=== PATIENT | male | born 1980 | race Caucasian/White ===

== ENCOUNTER 2018-09-29 16:56 | Observation (INO) ==
[2018-09-29] MEDS ORDERED: IOPAMIDOL 100 ML BOTTLE IV ONE (16:57)
[2018-09-29] MEDS ORDERED: 0.9 % SODIUM CHLORIDE 1,000 ML IV ONE ×2 (17:16→18:21)
[2018-09-29 17:53] LABS: Basophils # (Auto) 0 K/mcL (0.0-0.3); Basophils % (Auto) 0.1 % (0.0-2.0); Eosinophils # (Auto) 0 K/mcL (0.0-0.7); Eosinophils % (Auto) 0.1 % (0.0-7.0); Lymphocytes # (Auto) 1.2 K/mcL (1.5-4.8); Lymphocytes % (Auto) 7.7 % (15.5-49.0); Mean Cell Volume 84.9 fL (80.0-100.0); Mean Corpuscular HGB Conc 33.5 g/dL (31.0-36.0); Monocytes # (Auto) 0.7 K/mcL (0.1-0.9); Monocytes % (Auto) 4.1 % (1.0-12.0); Platelet Count 188 K/mcL (140-440); RBC 5.44 M/mcL (4.50-5.90); Red Cell Distribution Width 13.3 % (11.5-14.5)
--- NOTE | 2018-09-29 17:53 | Emergency Department Note ---
Abdominal Pain HPI - General Chief Complaint: Abdominal Pain Stated Complaint: central abd pain, n/v/d Time Seen by Provider: 09/29/18 17:01 Source: patient Mode of arrival: ambulatory Limitations: no limitations - History of Present Illness HPI Narrative: 38-year-old male patient presents to the emergency department with chief complaint of nausea vomiting 1 this morning. Patient tells me he's been suffering from a "head cold" for the last week. Started feeling better as he woke up this morning. She ate steak and aches for breakfast and then became profoundly nauseated and vomited times one. He denies any hematemesis or active nauseated right now. He does admit to some mild generalized abdominal pain. He denies any diarrhea. He denies any other sick contacts at home. He denies any systemic fevers, sweats, chills, sinusitis, runny nose, cough, shortness of breath, chest pain, palpitations, or focal weakness. He does have a significant past history of some form of infection to his cecum that was confirmed with CT scan last year. He admits to being treated as an outpatient with antibiotics (he is unsure what ones). - Related Data Home Medications Medication Instructions Recorded Confirmed No Known Home Meds 09/29/18 09/29/18 Allergies Allergy/AdvReac Type Severity Reaction Status Date / Time No Known Drug Allergies Allergy Verified 09/29/18 16:58 Review of Systems All systems ED: reviewed and negative except as stated. Abdominal Pain PMH - Social History Smoking status: Former smoker Physical Exam Limitations: no limitations General appearance: alert, in no apparent distress Eye: Present: normal appearance, PERRL, EOMI. Absent: scleral icterus, c onjunctival injection ENT: normal oropharynx, mucous membranes moist Neck: Present: normal inspection Respiratory: Present: normal lung sounds bilaterally. Absent: respiratory distress, wheezes, stridor, accessory muscle use, prolonged expiratory phase Cardiovascular: Present: regular rate, normal rhythm. Absent: systolic murmur, diastolic murmur Abdominal: Present: soft, tenderness (left lower quadrant), hyperactive bowel sounds. Absent: distention, guarding, rebound, rigidity, organomegaly, mass Extremities: Absent: pedal edema, pretibial edema, calf tenderness Back: Absent: CVA tenderness (R), CVA tenderness (L), spinous process tenderness Neurological: Present: alert, oriented X3 Psychiatric: Present: normal affect, normal mood Skin: Present: warm, dry Course Course Narrative: Patient was brought into the emergency department and a history of physical exam is performed. A saline lock was established and normal saline was started 1000 mg bolus. Routine laboratory studies were drawn. I discussed the case and possible imaging studies and my collaborative physician (Dr. Stratton) and based on the patient's left lower quadrant pain and history was thought best to obtain a CT scan of his abdomen/pelvis. The laboratory studies returned showing an elevated white blood cell count of 15 with a left shift. His other liver functions, renal functions, electrolytes were within normal limits. The CT scan was reviewed by the radiologist who mentions the patient has a distended appendix at 14 mm without perforation. Due to these findings, I contacted the on-call surgeon (Dr. Peralta) and discussed the case with him. At this time Dr. Peralta is requesting that the patient be admitted to observation. He recommended that IV antibiotics (Zosyn) be started and that the patient be kept nothing by mouth until his evaluation. The IV antibiotics were started within the emergency department. The patient was transferred to observation with and left the emergency department in stable condition. All further treatment decisions and orders will be carried out by Dr. Peralta (general surgery). Vital Signs Temperature 97.9 F 09/29/18 16:56 Pulse Rate 78 09/29/18 16:56 Respiratory Rate 14 09/29/18 16:56 Blood Pressure 152/100 09/29/18 16:56 Pulse Oximetry (%) 99 09/29/18 16:56 Temperature 97.9 F 09/29/18 16:56 Pulse Rate 70 09/29/18 19:00 Respiratory Rate 16 09/29/18 19:00 Blood Pressure 139/84 09/29/18 18:46 Pulse Oximetry (%) 96 09/29/18 19:00 Abdominal Pain - Lab Data Lab results reviewed: Yes I reviewed the patient's lab results. Result diagrams: 09/29/18 17:20 09/29/18 17:20 Lab Results 09/29/18 09/29/18 09/29/18 Range/Units 17:10 17:20 17:20 WBC 15.9 H (4.5-11.0) K/mcL RBC 5.44 (4.50-5.90) M/mcL Hgb 15.4 (13.5-16.5) g/dL Hct 46.2 (41.0-55.0) % MCV 84.9 (80.0-100.0) fL MCH 28.4 (26.0-34.0) pg MCHC 33.5 (31.0-36.0) g/dL RDW 13.3 (11.5-14.5) % Plt Count 188 (140-440) K/mcL MPV 9.1 (7.4-10.4) fL Gran % 88.0 H (38.0-78.0) % Lymph % (Auto) 7.7 L (15.5-49.0) % Lassen % (Auto) 4.1 (1.0-12.0) % Eos % (Auto) 0.1 (0.0-7.0) % Baso % (Auto) 0.1 (0.0-2.0) % Gran # 14.0 H (1.8-8.0) K/mcL Lymph # (Auto) 1.2 L (1.5-4.8) K/mcL Lassen # (Auto) 0.7 (0.1-0.9) K/mcL Eos # (Auto) 0 (0.0-0.7) K/mcL Baso # (Auto) 0 (0.0-0.3) K/mcL VBG Lactic Acid (0.5-2.0) mmol/L Sodium 139 (133-145) mmol/L Potassium 3.8 (3.3-5.1) mmol/L Chloride 100 (96-108) mmol/L Carbon Dioxide 26 (22-30) mmol/L Anion Gap 13.0 (8-16) BUN 15 (6-20) mg/dl Creatinine 1.1 (0.7-1.2) mg/dl GFR Calculation 85 Glucose 102 (70-105) mg/dL Calcium 9.7 (8.6-10.4) mg/dl Total Bilirubin 0.3 (0.0-1.0) mg/dL AST 21 (0-37) U/l ALT 35 (0-40) U/l Alkaline Phosphatase 69 (39-117) U/L Total Protein 8.0 (5.9-8.4) gm/dL Albumin 5.0 (3.2-5.2) gm/dL Globulin 3.0 (2.2-3.7) gm/dL Albumin/Globulin Ratio 1.7 (1.0-2.3) Amylase 44 (28-100) U/L Lipase 25 (7-60) U/L Urine Color Yellow Urine Appearance Clear Urine pH 5.0 (5.0-9.0) Ur Specific [place] 1.023 (1.000-1.035) Urine Protein Neg (NEG) mg/dL Urine Glucose (UA) Negative (NEG) mg/dL Urine Ketones 20 A (NEG) mg/dL Urine Occult Blood 0.2 A (<0.03) mg/dL Urine Nitrate Neg (NEG) Urine Bilirubin Neg (NEG) mg/dL Urine Urobilinogen Neg (NEG) mg/dL Ur Leukocyte Esterase Neg (NEG) /uL Urine RBC 1 (0-1) /hpf Urine WBC 0 (0-4) /hpf Ur Squamous Epith Cells 0 (0-4) /hpf Urine Bacteria 0 (0) /hpf Urine Mucus Few (0) /hpf Ur Culture Indicated? No 09/29/18 Range/Units 18:20 WBC (4.5-11.0) K/mcL RBC (4.50-5.90) M/mcL Hgb (13.5-16.5) g/dL Hct (41.0-55.0) % MCV (80.0-100.0) fL MCH (26.0-34.0) pg MCHC (31.0-36.0) g/dL RDW (11.5-14.5) % Plt Count (140-440) K/mcL MPV (7.4-10.4) fL Gran % (38.0-78.0) % Lymph % (Auto) (15.5-49.0) % Lassen % (Auto) (1.0-12.0) % Eos % (Auto) (0.0-7.0) % Baso % (Auto) (0.0-2.0) % Gran # (1.8-8.0) K/mcL Lymph # (Auto) (1.5-4.8) K/mcL Lassen # (Auto) (0.1-0.9) K/mcL Eos # (Auto) (0.0-0.7) K/mcL Baso # (Auto) (0.0-0.3) K/mcL VBG Lactic Acid 1.5 (0.5-2.0) mmol/L Sodium (133-145) mmol/L Potassium (3.3-5.1) mmol/L Chloride (96-108) mmol/L Carbon Dioxide (22-30) mmol/L Anion Gap (8-16) BUN (6-20) mg/dl Creatinine (0.7-1.2) mg/dl GFR Calculation Glucose (70-105) mg/dL Calcium (8.6-10.4) mg/dl Total Bilirubin (0.0-1.0) mg/dL AST (0-37) U/l ALT (0-40) U/l Alkaline Phosphatase (39-117) U/L Total Protein (5.9-8.4) gm/dL Albumin (3.2-5.2) gm/dL Globulin (2.2-3.7) gm/dL Albumin/Globulin Ratio (1.0-2.3) Amylase (28-100) U/L Lipase (7-60) U/L Urine Color Urine Appearance Urine pH (5.0-9.0) Ur Specific [place] (1.000-1.035) Urine Protein (NEG) mg/dL Urine Glucose (UA) (NEG) mg/dL Urine Ketones (NEG) mg/dL Urine Occult Blood (<0.03) mg/dL Urine Nitrate (NEG) Urine Bilirubin (NEG) mg/dL Urine Urobilinogen (NEG) mg/dL Ur Leukocyte Esterase (NEG) /uL Urine RBC (0-1) /hpf Urine WBC (0-4) /hpf Ur Squamous Epith Cells (0-4) /hpf Urine Bacteria (0) /hpf Urine Mucus (0) /hpf Ur Culture Indicated? - Radiology Data Radiology results reviewed: Yes I reviewed the patient's radiology results. Disposition Pt seen by [facility]ORSE/PA only: No (Epic Cadence Analyst) Clinical Impression: Acute appendicitis Qualifiers: Acute appendicitis type: with generalized peritonitis Appendicitis gangrene presence: without gangrene Appendicitis perforation presence: unspecified whether perforation present Appendicitis abscess presence: without abscess Qualified Code(s): K35.20 - Acute appendicitis with generalized peritonitis, without abscess Disposition: Xfer As Outpt/Obs ([facility]) Condition: Good Instructions: Appendicitis (GEN) Additional Instructions: Patient is being admitted to observation from the emergency department. All further treatment decisions will be carried out by general surgery. Referrals: Maldonado Peralta MD [Physician] - Time of Disposition: 19:24
[2018-09-29 17:56] LABS: Appearance,Urine CLEAR; Bacteria,Urine 0 /hpf (0); Bilirubin,Urine NEG (NEG); Color,Urine YELLOW; Glucose,Urine (UA) NEGATIVE (NEG); Leukocyte Esterase,Urine NEG /uL (NEG); Mucus,Urine FEW /hpf (0); Protein,Urine NEG (NEG); Specific Gravity,Urine 1.023 (1.000-1.035); Urine Blood 0.2 mg/dL (<0.03); Urine RBC 1 /hpf (0-1); Urine Squamous Epithelial Cell 0 /hpf (0-4); Urine WBC 0 /hpf (0-4); Urobilinogen,Urine NEG (NEG)
[2018-09-29 18:08] LABS: ALT/SGPT 35 U/l (0-40); Albumin/Globulin Ratio 1.7 (1.0-2.3); Alkaline Phosphatase 69 U/L (39-117); Amylase 44 U/L (28-100); Blood Urea Nitrogen 15 mg/dl (6-20); Lipase 25 U/L (7-60)
--- NOTE | 2018-09-29 18:10 | Cat Scan Report ---
CLINICAL INFORMATION: Left lower quadrant abdominal pain COMPARISON: None. TECHNIQUE: Axial images were obtained through the abdomen and pelvis. Sagittally and coronally reformatted images. 80 mL contrast material injected intravenously. Oral contrast material was not administered FINDINGS: There is a 10 mm appendicolith at the base of the appendix. Appendix is dilated to approximately 14 mm in cross-sectional diameter. There is mild mural enhancement and minimal periappendiceal inflammatory change. No evidence for ruptured appendicitis. There is no appendiceal abscess. No free pelvic fluid. No significant mesenteric adenopathy. Colon is otherwise negative. There is no significant diverticulosis. There is no diverticulitis. No detectable colonic mass. There is no mechanical small bowel obstruction. There is a 3.2 cm oval-shaped mass in the right inguinal canal. Appearance is consistent with a retracted or an undescended right testicle. There is no discrete testicular mass Lung bases are negative. No parenchymal infiltrate or mass. There is no pleural fluid. There is no pericardial fluid. Liver is negative. No focal intrahepatic abnormality. Gallbladder is present. There are no calcified gallstones. No dilated bile ducts. Pancreas is negative. No pancreatic mass. No peripancreatic abnormality. Negative spleen. There is no splenomegaly. Normal enhancement splenic and portal veins. Negative adrenal glands. Kidneys are negative. No solid or cystic mass. No hydronephrosis. There is no hydroureter. No bladder calculus. Lumbar spine is negative. Sacrum and pelvis are negative. IMPRESSION: 1. 10 mm appendicolith at the base of the appendix. Mild appendicitis. Appendix is distended to 14 mm in cross-sectional diameter. No evidence for ruptured appendicitis 2. Probable undescended or retracted testicle within the right inguinal canal The exam was performed using radiation dose optimization techniques including, but not limited to, automated exposure control, adjustment of the mA and/or kV according to patient size and use of iterative reconstruction technique. Interpreted and Authenticated by: Reji Zuniga 09/29/18
[2018-09-29] MEDS ORDERED: HYDROmorphone 2 MG/ML VIAL IV PRN (18:20)
[2018-09-29] MEDS ORDERED: ONDANSETRON 4 MG/2 ML VIAL IV ONE (18:21)
[2018-09-29] MEDS ORDERED: ONDANSETRON 4 MG/2 ML VIAL IV PRN (18:24)
[2018-09-29] MEDS ORDERED: PIPERACILLIN SODIUM/TAZOBACTAM 3.375 GM in DEXTROSE 5% IN WATER 50 ML IV ONE (18:26)
[2018-09-29] MEDS: HYDROmorphone 2 MG/ML VIAL IV PRN ×3 (18:46→22:52)
[2018-09-29] MEDS ORDERED: PIPERACILLIN SODIUM/TAZOBACTAM 3.375 GM in DEXTROSE 5% IN WATER 50 ML IV SCH (20:00)
--- NOTE | 2018-09-29 20:26 | General Surg History&Physical ---
History of Present Illness Patient information: Note initiated : 09/29/18 at 8:24 pm Service Date, if different from initiated Date: [] Patient: Walter Trinidad 38 y/o M admitted on for central abd pain, n/v/d. Chief Complaint: [] HPI: Mr. Trinidad is a 38 year old M admitted with acute appendicitis. The patient had onset of epigastric pain about 2 PM today. This was followed by diarrhea. About 3:30 he developed more suprapubic pain which increased with movement with respirations. It increased in severity which prompted him to come to the emergency room. In the emergency room, his white blood count was 15.9. CT of the abdomen shows a dilated appendix with thickened wall and an appendicolith compatible with appendicitis. . He has a history of infection in the cecum last year which was treated with antibiotics. The source of the infection is not known. Patient is admitted and will have appendectomy in the morning.. Review of Systems - Respiratory other (recent URI, which has resolved) Past History Past medical history: No chronic medical illness Past surgical history: No prior operative procedure Past family history: Mother age 72 healthy without illness. Father age and status unknown. 3 siblings alive and well Past social history: History of smoking one half pack a day for 15 years; stopped 10 years ago. Uses alcohol about twice a year. Denies drug use Medications and Allergies Home Medications Medication Instructions Recorded Confirmed Type No Known Home Meds 09/29/18 09/29/18 History Allergies Allergy/AdvReac Type Severity Reaction Status Date / Time No Known Drug Allergies Allergy Verified 09/29/18 16:58 Exam Temp Pulse Resp BP Pulse Ox 97.9 F 84 16 128/74 98 09/29/18 16:56 09/29/18 20:09 09/29/18 20:09 09/29/18 20:02 09/29/18 20:09 - General physical appearance well developed, well nourished, no distress - Eyes PERRL, normal ocular movement - ENT normal pinna, normal nares, normal mucosa, no hearing loss, no congestion - Head Head exam IM: Present: atraumatic, normocephalic - Neck no masses, no bruits, trachea midline, no lymphadenopathy, no venous distension - Cardiovascular Cardiovascular exam IM: Present: normal rate and rhythm - Respiratory normal expansion, normal respiratory effort, clear to percussion, clear to auscultation - Abdomen Abdomen: Present: soft, tender (suprapubic and right lower quadrant tenderness with mild guarding; good active bowel sounds), bowel sounds Hernia: Present: none - Genitourinary Present: normal penis with no external lesions - Integumentary Present: no rash, no growths, no abnormal pigmentation - Neurologic Present: normal coordination, normal sensation - Musculoskeletal Present: normal gait, normal posture - Psychiatric Present: oriented to time, oriented to person, oriented to place, speech is normal, memory intact Assessment and Plan (1) Acute appendicitis Patient is admitted and started on IV antibiotics. Nothing by mouth after midnight. Zosyn 3.375 g IV every 6. Patient counseled for laparoscopic appendectomy to be done tomorrow Status: Acute Qualifiers: Acute appendicitis type: with generalized peritonitis Appendicitis gangrene presence: without gangrene Appendicitis perforation presence: unspecified whether perforation present Appendicitis abscess presence: without abscess Qualified Code(s): K35.20 - Acute appendicitis with generalized peritonitis, without abscess
[2018-09-29] MEDS: 0.9 % SODIUM CHLORIDE 1,000 ML IV SCH (21:08)
[2018-09-29] MEDS: ONDANSETRON 4 MG/2 ML VIAL IV PRN (22:52)
[2018-09-30] MEDS: PIPERACILLIN SODIUM/TAZOBACTAM 3.375 GM in DEXTROSE 5% IN WATER 50 ML IV SCH ×5 (00:20→22:52)
[2018-09-30 05:12] LABS: Basophils # (Auto) 0 K/mcL (0.0-0.3); Basophils % (Auto) 0.3 % (0.0-2.0); Eosinophils # (Auto) 0 K/mcL (0.0-0.7); Eosinophils % (Auto) 0.1 % (0.0-7.0); Lymphocytes # (Auto) 1.5 K/mcL (1.5-4.8); Lymphocytes % (Auto) 12.6 % (15.5-49.0); Mean Cell Volume 85.9 fL (80.0-100.0); Mean Corpuscular HGB Conc 33.3 g/dL (31.0-36.0); Monocytes # (Auto) 0.8 K/mcL (0.1-0.9); Platelet Count 148 K/mcL (140-440); Red Cell Distribution Width 13.6 % (11.5-14.5)
[2018-09-30 05:58] LABS: ALT/SGPT 22 U/l (0-40); Albumin/Globulin Ratio 1.7 (1.0-2.3); Alkaline Phosphatase 50 U/L (39-117); Bilirubin,Direct < 0.2 mg/dL (0.0-0.3); Blood Urea Nitrogen 11 mg/dl (6-20); Gamma Glutamyl Transpeptidase 25 U/L (8-61); Uric Acid 6.1 mg/dL (2.5-8.0)
[2018-09-30] MEDS: 0.9 % SODIUM CHLORIDE 1,000 ML IV SCH ×3 (06:13→22:51)
--- NOTE | 2018-09-30 08:08 | Emergency Department Note ---
ED Note Addendum Note Addendum: I discussed this case with the mid-level provider and agree with the assessment and plan.
[2018-09-30] MEDS: HYDROmorphone 2 MG/ML VIAL IV PRN ×5 (08:17→22:39)
[2018-09-30] MEDS: ONDANSETRON 4 MG/2 ML VIAL IV PRN ×2 (08:18→22:39)
[2018-09-30] MEDS ORDERED: MIDAZOLAM 5 MG/5 ML VIAL IV ONE (13:10)
[2018-09-30] MEDS ORDERED: PROPOFOL 200 MG/20 ML VIAL IV ONE (13:10)
[2018-09-30] MEDS ORDERED: ONDANSETRON 4 MG/2 ML VIAL IV ONE (13:10)
[2018-09-30] MEDS ORDERED: SUCCINYLCHOLINE 20 MG/ML ML IV ONE (13:10)
[2018-09-30] MEDS ORDERED: fentaNYL 250 MCG/5 ML VIAL IV ONE (13:10)
[2018-09-30] MEDS ORDERED: LIDOCAINE HCL/PF 100 MG/5 ML SYRINGE IV ONE (13:10)
[2018-09-30] MEDS ORDERED: ROCURONIUM 10 MG/ML ML IV ONE (13:10)
[2018-09-30] MEDS ORDERED: DEXAMETHASONE 10 MG/ML VIAL IV ONE (13:10)
[2018-09-30] MEDS ORDERED: METOPROLOL TARTRATE 5 MG/5 ML VIAL IV PRN (13:49)
[2018-09-30] MEDS ORDERED: MEPERIDINE 25 MG/ML SYRINGE IV PRN (13:49)
[2018-09-30] MEDS ORDERED: fentaNYL 100 MCG/2 ML VIAL IV PRN (13:49)
[2018-09-30] MEDS ORDERED: PROMETHAZINE 25 MG/ML VIAL IV PRN (13:49)
[2018-09-30] MEDS ORDERED: ePHEDrine 50 MG/ML AMPUL IV PRN (13:49)
[2018-09-30] MEDS ORDERED: HYDROmorphone 2 MG/ML VIAL IV PRN (13:49)
[2018-09-30] MEDS ORDERED: ONDANSETRON 4 MG/2 ML VIAL IV PRN (13:49)
[2018-09-30] MEDS ORDERED: FLUMAZENIL 0.1 MG/ML ML IV PRN (13:49)
[2018-09-30] MEDS ORDERED: NALOXONE HCL 0.4 MG/ML VIAL IV PRN (13:49)
[2018-09-30] MEDS ORDERED: METHOCARBAMOL 1,000 MG/10 ML VIAL IV PRN (13:49)
[2018-09-30] MEDS ORDERED: ACETAMINOPHEN 1,000 MG/100 ML BOTTLE IV ONE (13:49)
[2018-09-30] MEDS ORDERED: diphenhydrAMINE 50 MG/ML VIAL IV PRN (13:49)
[2018-09-30] MEDS ORDERED: IPRATROPIUM/ALBUTEROL 3 ML AMPUL.NEB NEB PRN (13:49)
[2018-09-30] MEDS ORDERED: ATROPINE SULFATE 0.4 MG/ML VIAL IV PRN (13:49)
[2018-09-30] MEDS ORDERED: LACTATED RINGERS 1,000 ML IV SCH (14:00)
--- NOTE | 2018-09-30 14:07 | Brief Operative Note ---
Date of procedure: 09/30/18 Pre-op diagnosis: acute appendicitis Post-op diagnosis: other (acute appendicitis) Procedure: LAPAROSCOPIC APPENDECTOMY Grafts/Implants: No Anesthesia: GETA Findings: ACUTE SUPPURATIVE APPENDICITIS Complications: none Surgeon: Maldonado Peralta Estimated blood loss (cc): 15 Specimens Removed/Pathology: other (APPENDIX) Condition: stable Disposition: PACU
[2018-09-30] MEDS: 0.9 % SODIUM CHLORIDE 10 ML SYRINGE IV SCH (22:40)
[2018-10-01 05:41] LABS: Basophils # (Auto) 0 K/mcL (0.0-0.3); Basophils % (Auto) 0 % (0.0-2.0); Eosinophils # (Auto) 0 K/mcL (0.0-0.7); Eosinophils % (Auto) 0 % (0.0-7.0); Lymphocytes # (Auto) 0.7 K/mcL (1.5-4.8); Lymphocytes % (Auto) 8.4 % (15.5-49.0); Mean Cell Volume 87.2 fL (80.0-100.0); Mean Corpuscular HGB Conc 33.9 g/dL (31.0-36.0); Monocytes # (Auto) 0.4 K/mcL (0.1-0.9); Monocytes % (Auto) 4.6 % (1.0-12.0); Platelet Count 157 K/mcL (140-440); RBC 4.23 M/mcL (4.50-5.90); Red Cell Distribution Width 13.6 % (11.5-14.5)
[2018-10-01] MEDS: PIPERACILLIN SODIUM/TAZOBACTAM 3.375 GM in DEXTROSE 5% IN WATER 50 ML IV SCH ×2 (06:10→11:33)
[2018-10-01 06:20] LABS: ALT/SGPT 27 U/l (0-40); Albumin 3.8 gm/dL (3.2-5.2); Albumin/Globulin Ratio 1.6 (1.0-2.3); Alkaline Phosphatase 47 U/L (39-117); Bilirubin,Direct < 0.2 mg/dL (0.0-0.3); Blood Urea Nitrogen 10 mg/dl (6-20); Gamma Glutamyl Transpeptidase 31 U/L (8-61); Uric Acid 4.3 mg/dL (2.5-8.0)
[2018-10-01] MEDS: 0.9 % SODIUM CHLORIDE 10 ML SYRINGE IV SCH ×2 (06:44→14:28)
--- NOTE | 2018-10-01 11:44 | Surgical Pathology Report ---
HISTOLOGY SPECIMEN MICROSCOPIC DIAGNOSIS APPENDIX, APPENDECTOMY: -- ACUTE APPENDICITIS WITH SEROSITIS. (DMT:lb) CLINICAL HISTORY Central abdominal pain; nausea/vomiting; diarrhea. PROCEDURAL IMPRESSION Appendicitis. GROSS DESCRIPTION Received in formalin labeled appendix, is an 8.5 cm in length by up to 1.0 cm in diameter pink-landry to purple-landry appendix with attached 2.6 cm yellow-landry adipose tissue. A bella exudate is present on the outside of the specimen. The proximal end is closed with a staple line. Serially sectioned with the most proximal section inked black. Timber Management Technician sections submitted - one cassette. (KGW:lb) Electronically Signed by: Tristan Cortez M.D.
[2018-10-01] MEDS: 0.9 % SODIUM CHLORIDE 1,000 ML IV SCH ×2 (12:08→15:12)
--- NOTE | 2018-10-01 15:03 | Discharge Summary ---
Providers - Providers Patient information: Note initiated : 10/01/18 at 3:01 pm Service Date, if different from initiated Date: [] Patient: Walter Trinidad 38 y/o M admitted on 09/29/18 for central abd pain, n/v/d. Chief Complaint: [] Date of admission: 09/29/18 Discharge date: 10/01/18 Attending physician: Maldonado Peralta Hospitalization Hospital course: 30-year-old male who presented with suprapubic and mid hypogastric abdominal pain on October 06. Evaluation revealed acute appendicitis. He underwent laparoscopic appendectomy on October 06. He has had an uneventful recovery. He is tolerating a diet and having regular bowel movements. He is stable for discharge. I reviewed Discharge diagnosis: acute appendicitis Reason for admission: . Acute appendicitis Procedures: Laparoscopic appendectomy Pertinent studies/significant findings: CT of abdomen and pelvis with contrast Complications: None Exam Temp Pulse Resp BP Pulse Ox 98.2 F 69 18 112/69 98 10/01/18 12:00 10/01/18 12:00 10/01/18 12:00 10/01/18 12:00 10/01/18 12:00 - General physical appearance well developed, well nourished, no distress - Eyes PERRL, normal ocular movement - ENT normal pinna, normal nares, normal mucosa, no hearing loss, no congestion - Head Head exam IM: Present: atraumatic, normocephalic - Neck no masses, no bruits, trachea midline, no lymphadenopathy, no venous distension - Cardiovascular Cardiovascular exam IM: Present: normal rate and rhythm - Respiratory normal expansion, normal respiratory effort, clear to percussion, clear to auscultation - Abdomen Abdomen: Present: soft, tender (mild tenderness around port sites. Otherwise, abdominal exam is benign), bowel sounds Hernia: Present: none - Genitourinary Present: normal penis with no external lesions - Integumentary Present: no rash, no growths, no abnormal pigmentation - Neurologic Present: normal coordination, normal sensation - Musculoskeletal Present: normal gait, normal posture - Psychiatric Present: oriented to time, oriented to person, oriented to place, speech is normal, memory intact Discharge Plan - Patient/Caregiver Discharge Instructions Activity: increase activity as tolerated, resume usual activities as tolerated Diet: Regular Diet - Follow up Plan Follow up with: Maldonado Peralta MD [Physician] - 10/15/18 10:45 am Disposition: Home, Self-Care Prognosis: Good Rehab Potential: Good I certify that the patient requires SNF services.: No Overall status at discharge: patient is progressing back to baseline Pending Studies Resuscitation Status Full Code Diet Regular Diet Start SunOct 01 850 Hydromorphone HCl (Dilaudid) 1 mg IV Q4-6HP PRN PRN Reason: PAIN LEVEL > 6 Last Admin: 09/30/18 22:39 Dose: 1 mg Documented by: Admin: 09/30/18 15:35 Dose: 0.5 mg Documented by: Admin: 09/30/18 15:08 Dose: 0.5 mg Documented by: Admin: 09/30/18 11:34 Dose: 0.5 mg Documented by: Admin: 09/30/18 08:17 Dose: 0.5 mg Documented by: Admin: 09/29/18 22:52 Dose: 1 mg Documented by: JE Sodium Chloride (Sodium Chloride 0.9%) 1,000 mls @ 100 mls/hr IV .Q10H JANNA Last Admin: 10/01/18 12:08 Dose: Not Given Documented by: Admin: 09/30/18 22:51 Dose: 100 mls/hr Documented by: Infusion: 09/30/18 22:51 Dose: 100 mls/hr Documented by: Admin: 09/30/18 15:00 Dose: 100 mls/hr Documented by: Infusion: 09/30/18 15:00 Dose: 100 mls/hr Documented by: Admin: 09/30/18 06:13 Dose: 100 mls/hr Documented by: Infusion: 09/30/18 06:13 Dose: 100 mls/hr Documented by: Admin: 09/29/18 21:08 Dose: 100 mls/hr Documented by: [email or web address] Piperacillin Sod/Tazobactam (Sod 3.375 gm/ Dextrose) 50 mls @ 100 mls/hr IV Q6H JANNA; Protocol Last Infusion: 10/01/18 14:28 Dose: 0 mls/hr Documented by: Admin: 10/01/18 11:33 Dose: 100 mls/hr Documented by: Infusion: 10/01/18 06:44 Dose: 0 mls/hr Documented by: Admin: 10/01/18 06:10 Dose: 100 mls/hr Documented by: Infusion: 09/30/18 23:30 Dose: 0 mls/hr Documented by: Admin: 09/30/18 22:52 Dose: 100 mls/hr Documented by: Infusion: 09/30/18 18:15 Dose: 0 mls/hr Documented by: Admin: 09/30/18 17:38 Dose: 100 mls/hr Documented by: Infusion: 09/30/18 14:45 Dose: 0 mls/hr Documented by: Admin: 09/30/18 11:19 Dose: 100 mls/hr Documented by: Infusion: 09/30/18 06:43 Dose: 100 mls/hr Documented by: Admin: 09/30/18 06:13 Dose: 100 mls/hr Documented by: Infusion: 09/30/18 01:10 Dose: 0 mls/hr Documented by: Admin: 09/30/18 00:20 Dose: 100 mls/hr Documented by: JE Ondansetron HCl (Zofran) 4 mg IV Q4-6HP PRN PRN Reason: Nausea And Vomiting Last Admin: 09/30/18 22:39 Dose: 4 mg Documented by: Admin: 09/30/18 08:18 Dose: 4 mg Documented by: Admin: 09/29/18 22:52 Dose: 4 mg Documented by: JE Sodium Chloride (Saline Flush) 10 ml IV Q8 JANNA Last Admin: 10/01/18 14:28 Dose: Not Given Documented by: Admin: 10/01/18 06:44 Dose: Not Given Documented by: Admin: 09/30/18 22:40 Dose: Not Given Documented by: JE Shift Summary 10/01/18 03:59 Shift Summary by Janes Torrez AA&O x4; POD1 Lap appi with x3 lap sites covered with tegaderm, CDI; OOB with SBA to BR, Voiding large amounts of urine; tolerating a full liquid diet; VSS on RA; pain managed this shift with just one dose prn dilaudid 1 mg given over five minutes at 22:00 pm, able to sleep much of the night; IVF at 100 mL/hr; SCD's in place much of the night, pt requested a "break" from them as they were very hot and pt quite mobile; will update at bedside. Initialized on 10/01/18 03:59 - END OF NOTE
--- NOTE | 2018-10-04 11:25 | Operative Note ---
DATE OF OPERATION: 09/30/2018 PREOPERATIVE DIAGNOSIS: Acute appendicitis. POSTOPERATIVE DIAGNOSIS: Acute suppurative appendicitis. PROCEDURE: Laparoscopic appendectomy FINDINGS: Acute suppurative appendicitis. SURGEON: Maldonado Peralta M.D. DESCRIPTION OF PROCEDURE: Under general anesthesia, the patient's abdomen was prepped and draped in a sterile field. A time-out procedure was carried out as per protocol. Supraumbilical incision was made. Veress needle was inserted without difficulty. Abdomen was insufflated with 2 liters of CO2. A 12 mm port was placed uneventfully. The laparoscope was placed. Under videoscopic guidance, a 5 mm port was placed in the suprapubic midline and a 12 mm port in the left lower quadrant. The patient was placed in deep Trendelenburg position and rotated to the left. The appendix was found in the right gutter. It was dissected from the lateral peritoneal reflection using electrocautery and blunt dissection. The base of the appendix was identified. A window in the mesoappendix was developed and the base of the appendix was transected using an EndoGIA stapler. The mesoappendix was transected using EndoGIA stapler. The appendix was placed in an Endopouch and retrieved. Irrigation lobe was clear. There was no abscess and there was no purulent fluid within the pelvis or right gutter. The CO2 was allowed to escape from the abdomen and the ports were removed. Fascia at the umbilicus was closed with interrupted 0 Vicryl. Skin incisions were closed with chetan. The patient tolerated the procedure well. He was awakened, transferred to a bed and taken to the postanesthetic care unit in stable, satisfactory condition. LCS:terra Job ID: [id number] Doc ID: [id number] Maldonado Peralta M.D.
== END 2018-10-01 16:16 | disposition home or self-care (01) ==
LOC: ED 16:56 → MEDSUR 16:56
PROVIDERS: ADMIT Family Medicine Adult Medicine; ATTEND Family Medicine Adult Medicine
PROC: LAPAPPY (ICD-10-PCS; 2018-09-30 13:06)